=== PATIENT | male | born 1970 | race Caucasian/White ===

== ENCOUNTER 2023-08-07 14:13 | Outpatient (CLI) | payer OTHER, SELFPAY | END 2023-08-07 14:14 | disposition home or self-care (01) | LOC: AMB 08-10 16:46 | PROVIDERS: Visit Provider Student in an Organized Health Care Education/Training Program | DX: R07.89 Other chest pain (principal); R42 Dizziness and giddiness | CPT/HCPCS: A0425; A0427 ==

== ENCOUNTER 2023-08-07 14:49 | Emergency (ER) | payer OTHER, SELFPAY ==
[2023-08-07] VITALS (10 sets, daily range): BP systolic 115–161; BP diastolic 74–97; PULSE 60–65; RESP 18; TEMP 36.3; O2SAT 96–100; BMI 25.1
--- NOTE | 2023-08-07 15:14 | ED_ITS ---
HPI - Chest Pain General Time Seen by Provider: 15:14 Date Seen: 08/07/23 Chief Complaint: Chest Pain Stated Complaint: chest pain Time Seen by Provider: 08/07/23 15:10 Source: patient and RN notes reviewed Mode of arrival: ambulatory Limitations: no limitations History of Present Illness HPI narrative: Kel is a 53-year-old gentleman with history of daily tobacco use family history of early cardiac disease with a brother having heart attack at age of 52 who comes to the emergency room after experiencing chest tightness and nausea earlier today. Patient notes that he had been doing his normal job which is [employer]. He had to toe some vehicles up to [place] and half way home he noticed sudden onset of chest tightness associated with nausea. He did not vomit but came close to doing so. He has not had any diarrhea and he has otherwise been well without any cough. He denies back pain. Denies leg pain. He has not had a fever but states he suddenly is very exhausted and feels cold. He has not had any vaccinations for COVID or influenza and denies that he a has ever had these illnesses. At this time nausea and chest tightness have entirely resolved. Related Data Home Medications Medication Instructions Recorded Confirmed No Known Home Medications 08/07/23 08/07/23 Allergies Allergy/AdvReac Type Severity Reaction Status Date / Time Penicillins Allergy Intermediate Abdominal Verified 08/07/23 14:59 Pain Review of Systems Status of ROS Reports: 10 or more systems reviewed and unremarkable except as noted in History and below Const Reports: chills (Feels very cold); Denies: fever Eyes Denies: change in vision ENMT Denies: throat pain, neck pain, throat swelling or difficulty swallowing Cardio Reports: chest pain; Denies: palpitations, edema, swelling of feet/ankles, lightheadedness or shortness of breath with exertion Resp Denies: shortness of breath, cough or wheezing GI Reports: nausea; Denies: abdominal pain, vomiting, diarrhea or difficulty swallowing Denies: painful urination Musculo Denies: back pain (Pain did not radiate into back) or neck pain Integ/Breast Denies: rash Neuro Denies: headache or numbness in extremities Allergy/Immuno Denies: throat swelling or wheezing PFSH PFSH Social History Smoking Status: Unknown if ever smoked Do you use any of these nicotine containing products: None Second hand tobacco smoke exposure: No How often do you have a drink containing alcohol: monthly or less AUDIT-C Alcohol total score: 1 Non-prescribed substance use: denies use Exam Narrative Exam Narrative: Alert and oriented. Nontoxic in appearance. Very sleepy but able to wake up converse with me and is mentating normally with a GCS of 15 EOM is full. Face symmetrical. Lips are dry. Neck is supple. Heart with regular rate and rhythm. Lungs are with distant breath sounds but clear bilaterally with no crackles or wheezing. Abdomen is soft nontender. Lower extremities without edema. Pedal pulses are symmetrical and intact. Const Vital Signs, click to edit/add: Vital Signs - 24 hr 08/07/23 14:59 08/07/23 15:13 08/07/23 15:15 Temperature 97.4 F L Pulse Rate 62 64 Pulse Rate [Pulse Oximeter] 63 Respiratory Rate 18 Blood Pressure Blood Pressure [Right Upper Arm] 161/97 H Pulse Oximetry 96 97 97 Oxygen Delivery Method Room Air 08/07/23 15:30 08/07/23 15:31 08/07/23 15:45 Temperature Pulse Rate 60 62 65 Pulse Rate [Pulse Oximeter] Respiratory Rate Blood Pressure 115/74 Blood Pressure [Right Upper Arm] Pulse Oximetry 97 97 98 Oxygen Delivery Method 08/07/23 16:00 08/07/23 16:01 08/07/23 16:15 Temperature Pulse Rate 63 62 61 Pulse Rate [Pulse Oximeter] Respiratory Rate Blood Pressure 123/80 Blood Pressure [Right Upper Arm] Pulse Oximetry 99 99 100 Oxygen Delivery Method 08/07/23 16:33 Temperature Pulse Rate Pulse Rate [Pulse Oximeter] Respiratory Rate Blood Pressure 141/85 H Blood Pressure [Right Upper Arm] Pulse Oximetry Oxygen Delivery Method Documenting provider has reviewed patient's vital signs: yes Course Course ED Course: Differential diagnosis does include but is not limited to esophageal spasm, reflux, acute coronary event, early viral illness, biliary colic. Will place IV, give 1 L of normal saline, draw labs to include CBC, comprehensive, troponin, CRP, D-dimer, triple swab. Chest x-ray will also be ordered. EKG and cardiac monitoring will be ongoing. Reevaluation(s) Reevaluation #1: Patient continues to be tired but easily awoken. His mom is now here. [place] [id number] but I do not have any elevation of troponin, abnormal EKG, positive cough swab or any other etiology of patient's symptoms. I suspect is likely the beginning of a viral illness considering how tired patient is and that he is complaining of feeling cold. Vital Signs Vital signs: Initial Vital Signs Temperature 97.4 F L 08/07/23 14:59 Temperature Source Temporal Artery Scan 08/07/23 14:59 Pulse Rate 63 08/07/23 14:59 Respiratory Rate 18 08/07/23 14:59 Blood Pressure 161/97 H 08/07/23 14:59 Blood Pressure Mean 118 H 08/07/23 14:59 Pulse Oximetry 96 08/07/23 14:59 Oxygen Delivery Method Room Air 08/07/23 14:59 Vital Signs Temperature 97.4 F L 08/07/23 14:59 Pulse Rate 63 08/07/23 14:59 Respiratory Rate 18 08/07/23 14:59 Blood Pressure 161/97 H 08/07/23 14:59 Pulse Oximetry 96 08/07/23 14:59 Oxygen Delivery Method Room Air 08/07/23 14:59 Temperature 97.4 F L 08/07/23 14:59 Pulse Rate 61 08/07/23 16:15 Respiratory Rate 18 08/07/23 14:59 Blood Pressure 141/85 H 08/07/23 16:33 Pulse Oximetry 100 08/07/23 16:15 Oxygen Delivery Method Room Air 08/07/23 14:59 Medications Administered Medications: Discontinued Medications Generic Name Dose Route Start Last Admin Trade Name Freq PRN Reason Stop Dose Admin Sodium Chloride 1,000 mls @ 1,000 mls/hr 08/07/23 15:23 08/07/23 17:08 0.9 % Sodium Chloride 1000 Ml IV 08/07/23 16:22 Infused .Q1H CECI Infusion MDM - Chest Pain MDM Narrative Medical decision making narrative: 1. Nausea-this is entirely resolved. No further symptoms. No development of diarrhea. LFTs within normal limits. I do not know what to attribute this symptom to. 2. Atypical chest pain-patient noted to have reassuring EKGs, 2 sets of negative cardiac enzymes as well as a negative D-dimer. No further pain here in the emergency room since before arrival. No evidence of angina, acute coronary syndrome, pericarditis. 3. Chills and fatigue-I suspect that patient likely is coming down with influenza or COVID. He has tested negative for COVID/influenza/RSV but certainly his symptoms could describe day 1 of a viral illness. It is advised that he recheck COVID test in the next few days. If he starts running fever or worsening over the next 24 hours he is also a candidate for Tamiflu. He has not received any vaccinations for COVID or influenza per his report. He is a smoker. 4. Illicit drug use does-patient has tested positive for methamphetamines, amphetamines and marijuana. His mother is currently in the room but will attempt to discuss with him need for abstinence from these substances. 5. Leukocytosis-this may be demargination or may be subsequent to illness. Do not note any murmur. Will ensure blood culture prior to departure. 6. Disposition-home at this time. Continue to monitor symptoms. If he has worsening symptoms would suggest recheck of COVID and influenza as he is would be a candidate for both Paxlovid or Tamiflu. Return to the emergency room for worsening symptoms. Lab Data Attestation: I reviewed the patient's lab results. Labs: Lab Results 08/07/23 08/07/23 08/07/23 Range/Units 15:34 15:37 16:32 WBC 15.55 H (4.50-11.00) K/uL RBC 4.14 L (4.30-5.90) m/uL Hgb 13.0 L (13.5-17.5) gm/dL Hct 38.2 (37.0-53.0) % MCV 92 (80-100) fL MCH 31 (26-34) pg MCHC 34 (32-36) gm/dL RDW Coeff of Sonia 12.8 (11.5-15.5) % Plt Count 262 (140-440) K/uL Neut % (Auto) 79.3 H (42.0-72.0) % Lymph % (Auto) 12.3 L (20-44) % [place] % (Auto) 6.4 (0.0-11.0) % Eos % (Auto) 1.5 (0.0-7.0) % Baso % (Auto) 0.3 (0.0-3.0) % Neut # (Auto) 12.30 H (1.7-7.0) K/uL Lymph # (Auto) 1.90 (0.90-2.90) K/uL [place] # (Auto) 1.00 H (0.00-0.90) K/UL Eos # (Auto) 0.20 (0.00-0.50) K/uL Baso # (Auto) 0.00 (0.00-0.30) K/uL Abs Immat Gran (auto) 0.00 (0.00-0.30) K/uL Imm/Tot Granulo (auto) 0.2 % D-Dimer Quant (PE/DVT) < 0.27 (0.00-0.50) ug/ml Sodium 138 (135-149) mmol/L Potassium 3.6 (3.6-5.1) mmol/L Chloride 109 (96-114) mmol/L Carbon Dioxide 21 (20-32) mmol/L Anion Gap 8 (7-15) mEq/L BUN 20 (7-30) mg/dL Creatinine 0.7 (0.5-1.5) mg/dL Estimated Creat Clear 132.97 Estimated GFR 112 ml/min Glucose 115 (60-115) mg/dL Calcium 8.7 (8.4-10.6) mg/dL Total Bilirubin 0.4 (0.1-1.5) mg/dL AST 31 (12-35) U/L ALT 27 (4-50) U/L Alkaline Phosphatase 78 (40-150) U/L C-Reactive Protein 0.5 (0.5-1.0) mg/dL Total Protein 6.9 (6.0-8.3) g/dL Albumin 4.2 (3.3-5.0) g/dL Urine Color Yellow (Yellow) Urine Appearance Clear (Clear) Urine pH 6.5 (5.0-8.5) Ur Specific [place] 1.020 (1.000-1.030) Urine Protein Negative (Negative) Urine Glucose (UA) Negative (Negative) Urine Ketones Negative (Negative) Urine Blood Negative (Negative) Urine Nitrite Negative (Negative) Urine Bilirubin Negative (Negative) Urine Urobilinogen 0.2 (0.2-1.0) Ur Leukocyte Esterase Negative (Negative) Urine RBC 0-2 (0-2) Urine WBC 0-2 (0-5) Ur Squamous Epith Cells None (None-Few) Urine Bacteria None (None) Urine Opiates Screen Negative (Negative) Ur Oxycodone Screen Negative (Negative) Urine Methadone Screen Negative (Negative) Ur Barbiturates Screen Negative (Negative) U Tricyclic Antidepress Negative (Negative) Ur Phencyclidine Scrn Negative (Negative) Ur Amphetamines Screen POSITIVE A (Negative) U Methamphetamines Scrn POSITIVE A (Negative) U Benzodiazepines Scrn Negative (Negative) Urine Cocaine Screen Negative (Negative) U Marijuana (THC) Screen POSITIVE A (Negative) Ur Drug Screen Comment See Note SARS-CoV-2 (PCR) Negative SARS-CoV-2 (Negative) Influenza Type A (PCR) Negative PCR FLU A (Negative) Influenza Type B (PCR) Negative PCR FLU B (Negative) RSV (PCR) Negative PCR RSV (Negative) POC Troponin I 0.00 L (0.01-0.04) ng/ml 08/07/23 Range/Units 17:36 WBC (4.50-11.00) K/uL RBC (4.30-5.90) m/uL Hgb (13.5-17.5) gm/dL Hct (37.0-53.0) % MCV (80-100) fL MCH (26-34) pg MCHC (32-36) gm/dL RDW Coeff of Sonia (11.5-15.5) % Plt Count (140-440) K/uL Neut % (Auto) (42.0-72.0) % Lymph % (Auto) (20-44) % [place] % (Auto) (0.0-11.0) % Eos % (Auto) (0.0-7.0) % Baso % (Auto) (0.0-3.0) % Neut # (Auto) (1.7-7.0) K/uL Lymph # (Auto) (0.90-2.90) K/uL [place] # (Auto) (0.00-0.90) K/UL Eos # (Auto) (0.00-0.50) K/uL Baso # (Auto) (0.00-0.30) K/uL Abs Immat Gran (auto) (0.00-0.30) K/uL Imm/Tot Granulo (auto) % D-Dimer Quant (PE/DVT) (0.00-0.50) ug/ml Sodium (135-149) mmol/L Potassium (3.6-5.1) mmol/L Chloride (96-114) mmol/L Carbon Dioxide (20-32) mmol/L Anion Gap (7-15) mEq/L BUN (7-30) mg/dL Creatinine (0.5-1.5) mg/dL Estimated Creat Clear Estimated GFR ml/min Glucose (60-115) mg/dL Calcium (8.4-10.6) mg/dL Total Bilirubin (0.1-1.5) mg/dL AST (12-35) U/L ALT (4-50) U/L Alkaline Phosphatase (40-150) U/L C-Reactive Protein (0.5-1.0) mg/dL Total Protein (6.0-8.3) g/dL Albumin (3.3-5.0) g/dL Urine Color (Yellow) Urine Appearance (Clear) Urine pH (5.0-8.5) Ur Specific [place] (1.000-1.030) Urine Protein (Negative) Urine Glucose (UA) (Negative) Urine Ketones (Negative) Urine Blood (Negative) Urine Nitrite (Negative) Urine Bilirubin (Negative) Urine Urobilinogen (0.2-1.0) Ur Leukocyte Esterase (Negative) Urine RBC (0-2) Urine WBC (0-5) Ur Squamous Epith Cells (None-Few) Urine Bacteria (None) Urine Opiates Screen (Negative) Ur Oxycodone Screen (Negative) Urine Methadone Screen (Negative) Ur Barbiturates Screen (Negative) U Tricyclic Antidepress (Negative) Ur Phencyclidine Scrn (Negative) Ur Amphetamines Screen (Negative) U Methamphetamines Scrn (Negative) U Benzodiazepines Scrn (Negative) Urine Cocaine Screen (Negative) U Marijuana (THC) Screen (Negative) Ur Drug Screen Comment SARS-CoV-2 (PCR) (Negative) Influenza Type A (PCR) (Negative) Influenza Type B (PCR) (Negative) RSV (PCR) (Negative) POC Troponin I 0.00 L (0.01-0.04) ng/ml Imaging Data Chest x-ray: Attestation: I have reviewed the pertinent imaging results. My impression: I do not note any obvious infiltrates. Radiologist's impression: Cardiovascular and mediastinum: Heart size and vasculature are normal in caliber and appearance. Lungs and pleural space: Lungs are clear. No sign of infiltrate or mass. No sign of pleural effusion. No pneumothorax. Bones and soft tissues: No acute findings. ECG Data Attestation: I personally reviewed and interpreted this ECG as follows: ECG interpretation date: 08/07/23 Interpretation: EKG 1. By my read shows sinus rhythm at a rate of [address] or T-wave changes normal QT and AL intervals. 2. EKG 2. By my read shows sinus rhythm at a rate of 62. No acute ST or T-wave changes are noted. Discharge Plan Discharge Clinical Impression: Chills, Atypical chest pain Patient Disposition: Home, Self-Care Condition: Improved Additional Instructions: Seek medical attention for worsening symptoms. If you develop fever, cough, worsening symptoms I suggest you have a no other test for COVID and influenza. There are antiviral medications that she can take if you test positive. Push fluids as much as possible. Return to the emergency room for worsening symptoms. Note for being off work this week provided Prescriptions: No Action No Known Home Medications Follow Up/Referrals: Provider,Not a Local [Primary Care Provider] - Stand Alone Forms: [employer] Instructions
--- NOTE | 2023-08-07 15:26 | CRLHL7_ITS ---
For Patients: As a result of the Century Cures Act, medical imaging exams and procedure reports are released immediately into your electronic medical record. You may view this report before your referring provider. If you have questions, please contact your health care provider. Indication: Chest tightness Technique: Chest 1 view Comparison: None Findings/Impression: Cardiovascular and mediastinum: Heart size and vasculature are normal in caliber and appearance. Lungs and pleural space: Lungs are clear. No sign of infiltrate or mass. No sign of pleural effusion. No pneumothorax. Bones and soft tissues: No acute findings. Dictated by Jono Calderon MD @ 08/07/2023 4:00:43 PM (Electronically Signed)
[2023-08-07] MEDS: 0.9 % SODIUM CHLORIDE 1000 ml 1,000 ML IV (15:44)
[2023-08-07 15:53] LABS: Basophils Percent Auto 0.3 % (0.0-3.0); Eosinophils Percent Auto 1.5 % (0.0-7.0); Hematocrit 38.2 % (37.0-53.0); Immature Granulocytes Pct Auto 0.2 %; Lymphocytes Percent Auto 12.3 % (20-44); Mean Corpuscular HGB Conc 34 gm/dL (32-36); Mean Corpuscular Hemoglobin 31 pg (26-34); Mean Corpuscular Volume 92 fL (80-100); Monocytes Percent Auto 6.4 % (0.0-11.0); Neutrophils Percent Auto 79.3 % (42.0-72.0); Platelet Count* 262 K/uL (140-440); RDW Coefficient of Variation % 12.8 % (11.5-15.5); Red Blood Count 4.14 m/uL (4.30-5.90); White Blood Count* 15.55 K/uL (4.50-11.00)
[2023-08-07 15:54] LABS: Slide Review Reflex No
[2023-08-07 16:22] LABS: Albumin* 4.2 g/dL (3.3-5.0); Chloride* 109 mmol/L (96-114)
[2023-08-07 16:23] LABS: Potassium* 3.6 mmol/L (3.6-5.1); Sodium* 138 mmol/L (135-149)
[2023-08-07 16:25] LABS: Alkaline Phosphatase* 78 U/L (40-150); Anion Gap 8 mEq/L (7-15); Aspartate Amino Transferase* 31 U/L (12-35); Bilirubin Total* 0.4 mg/dL (0.1-1.5); Carbon Dioxide* 21 mmol/L (20-32); Creatinine* 0.7 mg/dL (0.5-1.5); Est. Creatinine Clearance* 132.97; Estimated Glomerular Filt Rate 112 ml/min; Total Protein* 6.9 g/dL (6.0-8.3)
[2023-08-07 16:26] LABS: Alanine Aminotransferase* 27 U/L (4-50); Blood Urea Nitrogen* 20 mg/dL (7-30); Calcium* 8.7 mg/dL (8.4-10.6); Glucose* 115 mg/dL (60-115)
[2023-08-07 16:28] LABS: C Reactive Protein* 0.5 mg/dL (0.5-1.0)
[2023-08-07 16:35] LABS: PCR FLU A Negative PCR FLU A (Negative); PCR FLU B Negative PCR FLU B (Negative); PCR RSV Negative PCR RSV (Negative); SARS PCR* Negative SARS-CoV-2 (Negative)
[2023-08-07 17:02] LABS: Appearance Urine Clear (Clear); Bilirubin Urine Negative (Negative); Blood Urine Negative (Negative); Color Urine Yellow (Yellow); Glucose Urine Negative (Negative); Ketones Urine Negative (Negative); Leukocyte Esterase Urine Negative (Negative); Nitrite Urine Negative (Negative); Protein Urine Negative (Negative); Urobilinogen Urine 0.2 (0.2-1.0); pH Urine 6.5 (5.0-8.5)
[2023-08-07 17:07] LABS: Amphetamine Screen Urine POSITIVE (Negative); Barbiturate Screen Urine Negative (Negative); Benzodiazepines Screen Urine Negative (Negative); Cannabinoid Screen Urine POSITIVE (Negative); Cocaine Screen Urine Negative (Negative); Methadone Screen Urine Negative (Negative); Methamphetamines Screen Urine POSITIVE (Negative); Opiate Screen Urine Negative (Negative); Oxycodone Screen Urine Negative (Negative); Phencyclidine Screen Urine Negative (Negative); Tricyclic Antidepressant Urine Negative (Negative)
[2023-08-07 17:19] LABS: RBC Urine 0-2 (0-2); WBC Urine 0-2 (0-5)
[2023-08-07 17:34] LABS: D Dimer Quantitative* < 0.27 ug/ml (0.00-0.50)
== END 2023-08-07 19:05 | disposition home or self-care (01) ==
PROVIDERS: Emergency Provider Family Medicine
DX: R07.89 Other chest pain (principal); R68.83 Chills (without fever)
CPT/HCPCS: 36415; 71045; 80053; 80306; 81001; 84484; 85025; 85379; 86140; 87040; 87631; 93005; 96360; 99284; 99285; J7030